=== PATIENT | male | born 1955 | race Caucasian/White ===

== ENCOUNTER 2017-11-05 19:19 | Inpatient (IN) | payer MEDICARE, OTHER ==
[~2017-11-05] VITALS: Ht 172.7 cm; Wt 113.4 kg
[2017-11-05 19:22] VITALS: BP 200/99
[2017-11-05 19:40] LABS: ABSOLUTE BASOPHILS 0.1 thou/uL (0.0-0.2); ABSOLUTE EOSINOPHILS 0.4 thou/uL (0.0-0.7); ABSOLUTE LYMPHOCYTES 2.4 thou/uL (0.8-5.3); ABSOLUTE MONOCYTES 0.6 thou/uL (0.0-1.2); ABSOLUTE NEUTROPHILS 5.5 thou/uL (1.6-8.1); BASOPHILS 1.2 %; EOSINOPHILS 4.9 %; HEMATOCRIT 40.7 % (42.0-52.0); HEMOGLOBIN 13.6 gm/dL (14.0-18.0); LYMPHOCYTES 26.7 %; MCH 27.6 pg (26.0-34.0); MCHC 33.4 g/dL (28.0-37.0); MCV 82.4 fL (80.0-100.0); MONOCYTES 7.1 %; MPV 8.3 fl. (7.2-11.1); NUCLEATED RBCS 0 /100WBC; PLATELET COUNT* 260 thou/uL (150-400); POLYS 60.1 %; RBC 4.94 mil/uL (4.50-6.00); RDW-CV 14.3 % (10.5-14.5); WBC 9.1 thou/uL (4.0-11.0)
[2017-11-05 19:48] LABS: ANION GAP 5 mmol/L (7-16); BUN 19 mg/dL (7-18); CALCIUM 8.6 mg/dL (8.5-10.1); CHLORIDE 102 mmol/L (98-107); CO2 31 mmol/L (21-32); CREATININE 1.6 mg/dL (0.6-1.3); GLUCOSE 218 mg/dL (70-99); POTASSIUM 4.6 mmol/L (3.5-5.1); SODIUM 138 mmol/L (136-145)
[2017-11-05 19:59] LABS: ALBUMIN 3.7 g/dL (3.4-5.0); ALKALINE PHOSPHATASE 145 U/L (46-116); LIPASE 238 U/L (73-393); NT-PRO BRAIN NAT PEPTIDE 83 pg/mL (<300); SGOT 19 U/L (15-37); SGPT 31 U/L (30-65); TOTAL BILIRUBIN 0.3 mg/dL (<0.1-1.0); TOTAL PROTEIN 7.7 g/dL (6.4-8.2); TROPONIN-I LEVEL <0.06 ng/mL (<0.06)
[2017-11-05 20:20] LABS: APTT 27.7 Seconds (25.0-31.3); INR 1.1; PROTIME 10.4 Seconds (9.20-11.50)
[2017-11-05 22:50] VITALS: BP 154/77
[2017-11-05 23:17] VITALS: BP 164/87
[2017-11-06] MEDS ORDERED: COREG25 MG PO (00:19)
[2017-11-06] MEDS ORDERED: FLOMAX0.4 MG PO (00:19)
[2017-11-06] MEDS ORDERED: CYMBALTA30 MG PO (00:19)
[2017-11-06] MEDS ORDERED: OMEPRAZOLE 20 M20 M1 PO (00:20)
[2017-11-06] MEDS ORDERED: LIPITOR 20 MG T20 M1 PO (00:20)
[2017-11-06] MEDS ORDERED: ASPIRIN EC81 M1 PO (00:20)
[2017-11-06] MEDS ORDERED: PLAVIX 75 MG TA75 M1 PO (00:20)
[2017-11-06] MEDS ORDERED: ALDACTONE50 MG PO (00:57)
[2017-11-06] MEDS ORDERED: COZAAR 50 MG TA50 M2 PO (00:57)
[2017-11-06] MEDS ORDERED: LANTUS100 UNIT/M SUBQ (00:58)
[2017-11-06] MEDS ORDERED: METFORMIN HCL500 MG PO (00:58)
[2017-11-06] MEDS ORDERED: XALATAN2.5 ML OPHTHALMIC (00:59)
[2017-11-06] MEDS ORDERED: NOVOLOG100 UNIT/1 SUBQ (01:01)
[2017-11-06 04:00] VITALS: BP 112/41
--- NOTE | 2017-11-06 04:31 | NUR ---
ASSUMED CARE OF PT AT 2305. PT IS ALERT AND ORIENTED. VSS. PERRLA. PT REPORTS ONGOING CHEST PAIN, BUT DOESNT WANT TO TAKE ANYTHING FOR PAIN. PT IS IN SINUS RYTHM ON THE TELEMETRY. PT IS RESTING COMFORTABLY IN BED. RESPIRATIONS ARE EVEN AND NONLABORED. WILL CONTINUE TO MONITOR PT.
[2017-11-06 08:00] VITALS: BP 153/75
--- NOTE | 2017-11-06 11:00 | EKG ---
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
--- NOTE | 2017-11-06 11:08 | EKG ---
[place] [address] ELECTROCARDIOGRAM REPORT Name: GRECIA MANZANO JR Room: [address] ADM IN M.R.#: [id number] Admission: 11/05/17 Attend Phys: Elijah Pedroza MD Discharge: Date of : 55 Report #: [id number] THIS REPORT FOR: //name// 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
[2017-11-06 12:00] VITALS: BP 115/90
--- NOTE | 2017-11-06 13:55 | NUR ---
CM ASSESSMENT: Pt is A&O. Resides at home with his , at bedside. Independent with ADLs, continues to assist around the house and drive. Pt wears a cpap at night, no other DME. No hx of HH. Hx of skilled in [place] after his stroke. Goal is to return home once medically stable for dc. No needs anticipated. Following.
[2017-11-06 15:00] VITALS: BP 115/90
--- NOTE | 2017-11-06 16:05 | EXE ---
[place] [address] STRESS ECHOCARDIOGRAM Name: GRECIA MANZANO JR Room: [address] IN [facility]#: [id number] Admission: 11/05/17 Attend Phys: Elijah Pedroza, Discharge: Date of : 55 Date of Service: 11/06/17 1604 Report #: [id number] THIS REPORT FOR: //name// APPROVED REPORT Exam: Dobutamine Stress Echo Indication: Chest pain Patient Location: In-Patient Stress Nurse: Lashae Perrin RN Room #: [facility] Supervising Physician: Dennis Fuentes MD Ht: 5 ft 8 in HR: 63 bpm BP: 156/88 mmHg Medical History Cardiac Risk Factors: HTN, Diabetes , Tobacco History (Former), FHX of CAD Procedure The patient underwent a Pharmacological Stress Test using Dobutamine. Blood pressure, heart rate, and EKG were monitored. An Echocardiogram was performed by seed technician in four stages in quad fashion. At peak stress, four selected images were obtained and placed side by side with resting images for comparison. Echo Enhancing Agent Indication: Endocardial border delineation Agent(s) / Amount(s) Used: Optison 6 cc Stress Test Details Stress Test: Pharmacological stress test performed using dobutamine initiated at 5 mcg/kg/min titrated sequentially 10, 20, 30 and 40 mcg/kg/min to target heart rate. HR Resting HR: 63 bpm Max Heart Rate (APMHR): 158 bpm Max HR Achieved: 158 bpm Target HR (85% APMHR): 134 bpm % of APMHR: 100 Recovery HR: 102 bpm HR response to stress: Normal HR response to stress BP Resting BP: 156/88 mmHg Max BP: 264/94 [place] [address] STRESS ECHOCARDIOGRAM Name: GRECIA MANZANO JR Room: [address]#: [id number] Admission: 11/05/17 Attend Phys: Elijah Pedroza, Discharge: Date of : 55 Date of Service: 11/06/17 1604 Report #: [id number] Recovery BP: 130/83 mmHg ECG Resting ECG: Sinus Rhythm Stress ECG: Sinus Rhythm, NSSTT changes ST Change: Upsloping ST depression Maximum ST Deviation: 0.5 mm Recovery ECG: Sinus Rhythm, nonspecific ST-T abnormalities Recovery ST Change: Upsloping ST depression Recovery ST Deviation: 0.5 mm Clinical Reason for Termination: Completed protocol Pre-Stress Echo The resting Echocardiogram showed normal left ventricular contractility with an estimated Ejection Fraction of about 55-60%. Post-Stress Echo The stress Echocardiogram showed normal left ventricular contractility with an estimated Ejection Fraction of about 65-70%. Conclusion Clinical Response: Non-ischemic Stress ECG Response: Equivocal Stress Echo Images: Non-ischemic images were suboptimal. consider nuclear imaging in the future Other Information Study Quality: Technically Difficult <Conclusion> images were suboptimal. consider nuclear imaging in the future <ELECTRONICALLY SIGNED> By: Dennis Fuentes MD, FACC 11/06/17 1604 1604 1604 Dennis Fuentes MD, FACC /INF
--- NOTE | 2017-11-06 16:45 | EKG ---
[place] [address] ELECTROCARDIOGRAM REPORT Name: GRECIA MANZANO JR Room: [address] IN 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: 27 : 1955 Requested By: Neva Pollard Order Number: [id number] Malina MD: Dennis Fuentes Measurements Intervals [place] Rate: 89 P: 54 [place]: 124 QRS: -21 QRSD: 101 T: 32 QT: 380 QTc: 463 Interpretive Statements Sinus rhythm Left ventricular hypertrophy Inferior infarct, old Compared to ECG 11/06/2017 09:04:58 No significant changes Electronically Signed On 11-06-2017 16:45:39 COMMERCIAL FINANCE MANAGER by Dennis Fuentes [email or web address] <ELECTRONICALLY SIGNED> By: Dennis Fuentes MD, [facility] 11/06/17 1645 1246 1246 Dennis Fuentes MD, [facility] /EPI
--- NOTE | 2017-11-06 18:51 | NUR ---
ORDER RECEIVED TO DISCHARGE [facility] TO SELF CARE. MED REC, MEDCIATION EDUCATION, STROKE EDUCATION, ADN NEED FOR FOLLOW UP [facility] AND STATED UNDEDRSTOOD BY [facility]. VITAL SIGNS STABLE AND PATIENT IN NO APPARENT DISTRESS AT THIS TIME. HOULRY ROUNDING COMPLETD FOR PATIENT SAFETY.
--- NOTE | 2017-11-07 17:17 | CON ---
[address] [address] CONSULTATION Name: GRECIA MANZANO JR Room: [address] IN .R.#: [id number] Admission: 11/05/17 Attend Phys: Elijah Pedroza MD Discharge: 11/06/17 Date of : 55 Report #: [id number] THIS REPORT FOR: //name// CC: [facility] physician/PCP Elijah Pedroza DATE OF SERVICE: 11/06/2017 HISTORY OF PRESENT ILLNESS: The patient is a 62-year-old white male who I was asked to see in hospital today after he complained of chest pain. The history is obtained from the patient. There are no old records here at [facility]. He has a long history of diabetes, hypertension, and hyperlipidemia. He presented in last fall with chest pain. He apparently had a pharmacologic stress test at the [facility]. He was found to have coronary artery disease. He apparently had a single coronary artery stent placed at the [place]. He has been on Plavix since that time. The patient apparently does go to cardiac rehab here at [facility]. Recently, he complains of intermittent chest pain. He describes sharp pain in his epigastric area. It feels like a focal area of pressure. It is not related to activity or meals. He has had no fever, cough, or blood in the stool. Denied any associated shortness of breath, diaphoresis, or nausea. It lasts about a minute and then resolves. After an episode yesterday, he came to the emergency room here at [facility]. He was admitted for further evaluation and treatment. He does note exertional dyspnea, but no palpitations or syncope. He has had no fever, cough, or blood in the stool. The pain was not related to food. It is not related to bending over. He has had no trauma to his chest or rash. PAST MEDICAL HISTORY: Otherwise significant for tonsillectomy and vasectomy. MEDICATIONS: Include aspirin, Lipitor, carvedilol, Plavix, insulin, losartan, metformin, omeprazole, spironolactone, and Flomax. ALLERGIES: He has intolerance to . FAMILY HISTORY: Positive for heart disease. SOCIAL HISTORY: He is . He and his live in [place]. 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 Quit smoking years ago. No alcohol abuse. Denies illicit drug use. REVIEW OF SYSTEMS: He does have sleep apnea. Apparently years ago, he was found to have a brain aneurysm, had a coil placed in his brain after he had some blurred vision. This was done in [place], [place]. He has no history of asthma, peptic ulcer disease, liver disease, kidney disease, or cancer. He does have a history of depression, saw a psychiatrist in the past. No chronic skin condition. [place] [address] CONSULTATION Name: GRECIA MANZANO JR Room: [address] IN [facility]#: [id number] Admission: 11/05/17 Attend Phys: Elijah Pedroza MD Discharge: 11/06/17 Date of : 55 Report #: [id number] PHYSICAL EXAMINATION: GENERAL: Revealed a middle-aged male, lying in bed, he appeared in no distress. VITAL SIGNS: He has a blood pressure of 160/80, pulse 70, he is afebrile. HEENT: He is anicteric. Conjunctivae are pink. Mucous members are moist. NECK: Veins nondistended. No carotid bruits. Neck supple. CHEST: Clear to auscultation. HEART: Regular rate and rhythm. No rub or murmur. ABDOMEN: Obese, soft, nontender. EXTREMITIES: Had no edema. Dorsalis pedis pulse 2+ bilaterally. SKIN: Warm and dry. NEUROLOGIC: Nonfocal. LYMPH: No adenopathy. MUSCULOSKELETAL: No joint effusions. PSYCHIATRIC: Mood appeared somewhat depressed. ECG last night showed a sinus rhythm. There was no ST or T-wave change noted. Workup in the emergency room last night, he had a portable chest x-ray that showed calcified aortic arch, otherwise unremarkable. Lab work, sodium 138, BUN 19, creatinine 1.6, glucose 218. Troponins all 0.06. White blood cell count 9.1, hemoglobin 13.6. IMPRESSION AND RECOMMENDATIONS: 1. Chest pain. Atypical for angina. Suspect noncardiac. Since the patient has a hard time walking on treadmill, I did recommend a dobutamine stress echo to look for ischemia. 2. Coronary artery disease. Previous stent. Currently on aspirin and Plavix. 3. Hyperlipidemia. The patient is on a statin drug. 4. Hypertension. The patient is on a beta cindi and ARB. 5. Diabetes. 6. Sleep apnea. 7. History of brain aneurysm, previous coiling. <ELECTRONICALLY SIGNED> By: Dennis Fuentes MD, FACC 11/07/17 1717 0842 1008Damitch Fuentes MD, FACC /nt
== END 2017-11-06 16:35 | disposition home or self-care (01) | DRG 303 ==
LOC: M.ERS 19:19 → M.2W 22:09 → M.TBA-ER 22:09 → M.2W 22:26
PROVIDERS: Personal Emergency Response Attendant; ADMIT Internal Medicine
DX: I25.119 Atherosclerotic heart disease of native coronary artery with unspecified angina pectoris (principal); N17.9 Acute kidney failure, unspecified; I10 Essential (primary) hypertension; E11.9 Type 2 diabetes mellitus without complications; E78.5 Hyperlipidemia, unspecified; G47.30 Sleep apnea, unspecified; D64.9 Anemia, unspecified; Z88.8 Allergy status to other drugs, medicaments and biological substances; Z91.013 Allergy to seafood; Z87.891 Personal history of nicotine dependence; Z90.49 Acquired absence of other specified parts of digestive tract; Z98.52 Vasectomy status; Z95.5 Presence of coronary angioplasty implant and graft; Z82.49 Family history of ischemic heart disease and other diseases of the circulatory system

== ENCOUNTER 2018-07-10 20:49 | Inpatient (IN) | payer MEDICARE, OTHER ==
[~2018-07-10] VITALS: Ht 172.7 cm; Wt 106.6 kg
--- NOTE | ~2018-07-10 | PROC ---
[facility] [address] [place] [address] PROCEDURE REPORT Name: GRECIA MANZANO JR Room: [address] IN .R.#: [id number] Admission: 07/10/18 Attend Phys: Elijah Pedroza MD Discharge: 07/14/18 Date of : 55 Report #: [id number] THIS REPORT FOR: //name// For GI report, please see the provation report in Perceptive 7 content. By: 0649Medical Records Staff ALLI /CECILIO
[~2018-07-10 20:49] MED LIST: ALDACTONE50 MG PO; ASPIRIN EC81 M1 PO; COREG25 MG PO; COZAAR 50 MG TA50 M2 PO; CYMBALTA30 MG PO; FLOMAX0.4 MG PO; LANTUS100 UNIT/M SUBQ; LIPITOR 20 MG T20 M1 PO; METFORMIN HCL500 MG PO; NOVOLOG100 UNIT/1 SUBQ; OMEPRAZOLE 20 M20 M1 PO; PLAVIX 75 MG TA75 M1 PO; XALATAN2.5 ML OPHTHALMIC
[2018-07-10] MEDS ORDERED: CYMBALTA60 MG PO (21:09)
[2018-07-10 21:10] VITALS: BP 151/73
[2018-07-10 21:46] LABS: URINE BILIRUBIN NEGATIVE (Negative); URINE BLOOD TRACE (Negative); URINE CLARITY CLEAR; URINE COLOR YELLOW; URINE GLUCOSE-RANDOM 2+ (Negative); URINE KETONES NEGATIVE (Negative); URINE LEUKOCYTES-REFLEX NEGATIVE (Negative); URINE NITRITE-REFLEX NEGATIVE (Negative); URINE PROTEIN TRACE (Negative); URINE SPECIFIC GRAVITY >= 1.030 (1.005-1.030); URINE UROBILINOGEN 0.2 E.U./dl (0.2-1.0)
[2018-07-10 21:53] LABS: BACTERIA-REFLEX None Seen /HPF (None Seen); CASTS None Seen /LPF (None Seen); CRYSTALS None Seen /LPF (None Seen); SQUAMOUS NONE SEEN /LPF (0-3); URINE RBC 0-2 Rare /HPF (0-2); URINE WBC-REFLEX None Seen /HPF (0-5)
[2018-07-10 22:01] LABS: ABSOLUTE BASOPHILS 0.1 thou/uL (0.0-0.2); ABSOLUTE EOSINOPHILS 0.3 thou/uL (0.0-0.7); ABSOLUTE LYMPHOCYTES 3.1 thou/uL (0.8-5.3); ABSOLUTE MONOCYTES 0.6 thou/uL (0.0-1.2); ABSOLUTE NEUTROPHILS 4.7 thou/uL (1.6-8.1); BASOPHILS 0.8 %; EOSINOPHILS 3.7 %; HEMATOCRIT 42.5 % (42.0-52.0); MCH 27.8 pg (26.0-34.0); MCV 84.3 fL (80.0-100.0); MPV 8.1 fl. (7.2-11.1); NUCLEATED RBCS 0 /100WBC; PLATELET COUNT* 233 thou/uL (150-400); POLYS 53.5 %; RBC 5.04 mil/uL (4.50-6.00); RDW-CV 13.6 % (10.5-14.5); WBC 8.8 thou/uL (4.0-11.0)
[2018-07-10 22:10] LABS: CALCIUM 9.4 mg/dL (8.5-10.1); POTASSIUM 4.8 mmol/L (3.5-5.1)
[2018-07-10 22:20] LABS: ALBUMIN 3.7 g/dL (3.4-5.0); TOTAL BILIRUBIN 0.4 mg/dL (<0.1-1.0); TOTAL PROTEIN 7.7 g/dL (6.4-8.2)
[2018-07-11 00:25] VITALS: BP 157/70
[2018-07-11 00:45] VITALS: BP 168/72
--- NOTE | 2018-07-11 06:27 | NUR ---
PATIENT ARRIVED ON FLOOR FROM ER ABOUT 0045. PATIENT ADMISSION HISTORY AND ASSESSMENT WAS COMPLETED CHARTED. PATIENT HAS HAD NO COMPLAINTS OF PAIN OR NAUSEA SINCE ARRIVAL UP HERE. WILL CONTINUE TO MONITOR.
--- NOTE | 2018-07-11 10:08 | NUR ---
SW met with pt to complete initial assessment, introduce self, and SW role. Pt resting but alert and oriented during conversation. Pt lives at home with his . Pt has CPAP at home but says that he coughs everytime he attempts to wear it. Pt did not express any dc needs at this time. SW to continue to follow.
[2018-07-11] MEDS ORDERED: THERA TEARS1 EAC1 OPHTHALMIC (12:35)
[2018-07-11] MEDS ORDERED: SINGULAIR 10 MG10 MG PO (12:36)
[2018-07-11 12:46] LABS: ABSOLUTE BASOPHILS 0.1 thou/uL (0.0-0.2); ABSOLUTE EOSINOPHILS 0.2 thou/uL (0.0-0.7); ABSOLUTE LYMPHOCYTES 2.3 thou/uL (0.8-5.3); ABSOLUTE MONOCYTES 0.4 thou/uL (0.0-1.2); BASOPHILS 0.9 %; EOSINOPHILS 4.2 %; HEMATOCRIT 41.3 % (42.0-52.0); HEMOGLOBIN 13.7 gm/dL (14.0-18.0); LYMPHOCYTES 38.5 %; MCH 27.6 pg (26.0-34.0); MCHC 33.1 g/dL (28.0-37.0); MCV 83.3 fL (80.0-100.0); MONOCYTES 6.7 %; MPV 7.9 fl. (7.2-11.1); NUCLEATED RBCS 0 /100WBC; PLATELET COUNT* 204 thou/uL (150-400); POLYS 49.7 %; RBC 4.95 mil/uL (4.50-6.00); RDW-CV 13.5 % (10.5-14.5); WBC 5.9 thou/uL (4.0-11.0)
[2018-07-11 12:52] LABS: POTASSIUM 4.9 mmol/L (3.5-5.1)
[2018-07-11 14:15] VITALS: BP 138/72
[2018-07-11 16:00] VITALS: BP 126/73
--- NOTE | 2018-07-11 17:25 | EKG ---
[place] [address] ELECTROCARDIOGRAM REPORT Name: GRECIA MANZANO JR Room: [address] ADM IN M.R.#: [id number] Admission: 07/10/18 Attend Phys: Elijah Pedroza MD Discharge: Date of : 55 Report #: [id number] THIS REPORT FOR: //name// [facility] ED Test Date: 2018-07-10 Test Time: 22:58:05 Pat Name: GRECIA MANZAON Department: Room: [facility] Gender: M Bank Appraiser: : 1955 Requested By: Arnel Diaz Order Number: [id number] MD: Arnel Beltran Measurements Intervals [place] Rate: 75 P: 51 [place]: 150 QRS: -18 QRSD: 102 T: 21 QT: 380 QTc: 425 Interpretive Statements Sinus rhythm Probable left ventricular hypertrophy Inferior infarct, old Compared to ECG 11/06/2017 12:46:29 No significant changes Electronically Signed On 07-11-2018 17:25:11 CDT by Arnel Beltran [email or web address] <ELECTRONICALLY SIGNED> By: Arnel Beltran MD, [facility] 07/11/18 4637 2258 2258 Arnel Beltran MD, [facility] /EPI
--- NOTE | 2018-07-11 19:39 | NUR ---
PATIENT A&OX4, ROOM AIR, IV RIGHT WRIST. NEW IV FLUIDS STARTED ALONG WITH IV ABX. UP INDEPENDENTLY, STEADY GAIT. C/O ABD PAIN, RELIEF WITH MEDICATION. NO OTHER CONCERNS AT THIS TIME. APPROPRAITE AND COOPORATIVE WITH CARE.
[2018-07-11 20:30] VITALS: BP 134/69
[2018-07-12 05:00] LABS: ABSOLUTE EOSINOPHILS 0.4 thou/uL (0.0-0.7); ABSOLUTE LYMPHOCYTES 2.6 thou/uL (0.8-5.3); ABSOLUTE MONOCYTES 0.5 thou/uL (0.0-1.2); ABSOLUTE NEUTROPHILS 3.4 thou/uL (1.6-8.1); BASOPHILS 0.6 %; EOSINOPHILS 5.1 %; HEMATOCRIT 37.3 % (42.0-52.0); HEMOGLOBIN 12.6 gm/dL (14.0-18.0); LYMPHOCYTES 37.7 %; MCH 28.1 pg (26.0-34.0); MCHC 33.7 g/dL (28.0-37.0); MCV 83.3 fL (80.0-100.0); MONOCYTES 7.1 %; MPV 8.3 fl. (7.2-11.1); NUCLEATED RBCS 0 /100WBC; PLATELET COUNT* 191 thou/uL (150-400); POLYS 49.5 %; RBC 4.48 mil/uL (4.50-6.00); RDW-CV 13.6 % (10.5-14.5); WBC 6.9 thou/uL (4.0-11.0)
[2018-07-12 05:01] LABS: CALCIUM 8.9 mg/dL (8.5-10.1); CREATININE 1.9 mg/dL (0.6-1.3); POTASSIUM 4.8 mmol/L (3.5-5.1)
[2018-07-12 08:30] VITALS: BP 155/69
[2018-07-12 16:59] VITALS: BP 162/64
--- NOTE | 2018-07-12 18:47 | NUR ---
PATIENT HAS BEEN A/O X 4 THIS SHIFT. MEDICATED FOR ABDOMINAL PAIN X 2 TODAY WITH PARTIAL RELIEF. PATIENT GIVEN ZOFRAN X 1 THIS AM. PATIENT CONTINUES ON IV FLUIDS. PATIENT'S BLOOD SUGARS MONITORED. PATIENT UP AD LUIS E IN ROOM, AMBULATING TO BATHROOM. UP IN CHAIR THIS SHIFT. PATIENT STARTED ON BOWEL PREP THIS AFTERNOON FOR COLONOSCOPY ON MONDAY, STOOLS BECOMING LIQUID WITH SANDLIKE CONSISTENCY. PATIENT'S FAMILY AT BEDSIDE INTERMITTENTLY THIS SHIFT. HOURLY ROUNDING COMPLETED. CALL LIGHT WITHIN REACH. WILL CONTINUE WITH PLAN OF CARE.
[2018-07-12 20:10] VITALS: BP 138/63
--- NOTE | 2018-07-13 06:07 | NUR ---
PT SLEPT ON AND OFF THIS SHIFT. ASSESSMENT DOCUMENTED. MEDS GIVEN PER E-DEC. PAIN MEDS GIVEN FOR ABDOMINAL PAIN PER E-DEC. PT REMAINED NPO AFTER MIDNIGHT. STOOLS CLEAR THIS SHIFT FROM BOWEL PREP. IV PATENT, FLUIDS INFUSING. CONSENTS FOR COLONOSCOPY SIGNED AND ON CHART. WILL CONTINUE WITH PLAN OF CARE.
[2018-07-13 08:30] VITALS: BP 137/69
[2018-07-13 09:36] VITALS: BP 137/69
[2018-07-13 14:35] VITALS: BP 159/75
--- NOTE | 2018-07-13 14:35 | NUR ---
PATIENT RETURNED FROM PACU S/P UNSUCCESSFUL COLONOSCOPY. PATIENT'S VITALS STABLE. TO REPEAT COLONOSCOPY ON MONDAY. PATIENT AWARE. WILL BEGIN BOWEL PREP WHEN AVAILABLE. CALL LIGHT WITHIN REACH. WILL CONTINUE WITH PLAN OF CARE.
[2018-07-13 15:50] VITALS: BP 143/64
--- NOTE | 2018-07-13 16:23 | NUR ---
SPOKE TO THE PATIENT TO DISCUSS DISCHARGE PLANNING NEEDS. PATIENT INFORMS THAT HE DOES NOT ANTICIPATE ANY DISCHARGE PLANNING NEEDS. CM WILL REMAIN AVIALABLE TO ASSIST AND FOLLOW NEEDED.
--- NOTE | 2018-07-13 19:20 | NUR ---
PATIENT HAS BEEN A/O X 4 THIS SHIFT. PATIENT TAKEN FOR COLONOSCOPY THIS SHIFT, DUE TO POOR BOWEL PREP, PATIENT WILL HAVE REPEAT COLONOSCOPY IN AM. PATIENT TAKING BOWEL PREP AT THIS TIME. UP AD LUIS E IN ROOM. PATIENT TAKING CLEAR LIQUIDS. PATIENT'S BLOOD SUGAR MONITORED. PATIENT MEDICATED FOR PAIN PRIOR TO COLONOSCOPY. PATIENT'S AT BEDSIDE THIS AM. HOURLY ROUNDING COMPLETED. CALL LIGHT WITHIN REACH. WILL CONTINUE WITH PLAN OF CARE.
[2018-07-13 23:10] VITALS: BP 160/70
[2018-07-14 04:35] LABS: HEMATOCRIT 40.9 % (42.0-52.0); HEMOGLOBIN 13.6 gm/dL (14.0-18.0); MCHC 33.2 g/dL (28.0-37.0); MCV 84.4 fL (80.0-100.0); MPV 8.3 fl. (7.2-11.1); RBC 4.85 mil/uL (4.50-6.00); RDW-CV 13.5 % (10.5-14.5); WBC 6.9 thou/uL (4.0-11.0)
[2018-07-14 04:43] LABS: CALCIUM 9.3 mg/dL (8.5-10.1); CREATININE 1.5 mg/dL (0.6-1.3); POTASSIUM 4.4 mmol/L (3.5-5.1)
--- NOTE | 2018-07-14 05:29 | NUR ---
ASSESSMENT COMPLETE. BOWEL PREP COMPLETED FOR COLONOSCOPY SCHEDULED TODAY. CONSENT SIGNED AND IN CHART. PT GIVEN PAIN MEDICATION ONCE DURING THE NIGHT. IV FLUIDS INFUSING. PT IS ON ROOM AIR WITH [place] SATS. UP AD LUIS E WITH STEADY GAIT. PT TURNS SELF IN BED. SEE ASSESSMENT AND VITALS FOR OTHER DETAILS. CALL LIGHT WITHIN REACH, WILL CONTINUE PLAN OF CARE
[2018-07-14 07:45] VITALS: BP 182/72
[2018-07-14 09:50] VITALS: BP 146/68
[2018-07-14 14:30] VITALS: BP 140/66
[2018-07-14 14:36] VITALS: BP 182/72
--- NOTE | 2018-07-14 15:07 | NUR ---
PATIENT A&OX4, ROOM AIR, IV LEFT FOREARM FLUIDS INFUSSING. UP AD LUIS E STEADY GIAT. BMX4, BOWEL PREP THROUGH NIGHT. COLONOSCOPY TODAY, POLUP REMOVED. TOLERATING HEART HEALTHY DIET. NO C/O PIAN/N/V. NO OTHER CONCERNS AT THIS TIME. PATIENT LEFT UNIT WITH ALL BELONGINGS AT 1505 WITH ALL BELONGINGS, NOTHING LEFT BEHIND. LEFT UNIT VIA W/C WITH SPOUCE. APPROPRAITE AND COOPORATIVE WITH CARE.
--- NOTE | 2018-07-19 16:08 | PATH ---
[facility] [address] [place] [address] PATHOLOGY RPT PROCEDURE Name: DANIEL MANZANO JR Room: [address] IN ..#: [id number] Admission: 07/10/18 Date of : 55 Discharge: 07/14/18 Report #: [id number] Path Case #: [id number] [facility] Accession Number: [id number] . 01 Material submitted: . ASCENDING COLON POLYP . 01 Clinical history: . Ascending colon polyp . 02 Diagnosis: Ascending colon polyp: - Serrated adenoma, negative for high grade dysplasia. . (EULA:at;07/17/2018) QTA/07/17/2018 . 02 Electronically signed: . Chaz Rider MD, Pathologist NPI- [id number] . 01 Gross description: . Received in formalin labeled "Daniel Manzano Jr, ascending colon polyp," is a polypoid segment of mcclain-brown soft tissue measuring 0.8 x 0.5 x 0.4 cm in greatest dimensions. The surgical margin is inked, and the specimen is bisected and submitted entirely in cassette A1. . Also received within the specimen container are two fragments of mcclain soft tissue measuring 0.4 x 0.3 x 0.1 cm and 0.8 x 0.4 x 0.3 cm in greatest dimensions. This tissue is also submitted entirely in cassette A1. ([facility]; 07/16/2018) XDC/XDC . 02 Pathologist provided ICD-10: D12.2 . 02 CPT . 202866 Specimen Comment: A courtesy copy of this report has been sent to Specimen Comment: [phone], . Specimen Comment: Report sent to / DR CHUNG Specimen Comment: A duplicate report has been generated due to demographic updates. Performed at: [address] [id number] MD Juan Henry MD Phone: [phone] Performed at: [address] [place] [address] PATHOLOGY RPT PROCEDURE Name: DANIEL MANZANO JR Room: [address] IN .R.#: [id number] Admission: 07/10/18 Date of : 55 Discharge: 07/14/18 Report #: [id number] Path Case #: [id number] [facility] [address] ALFREDO Kay [id number] MD Chaz Rider MD Phone: [phone]
--- NOTE | 2018-07-23 11:22 | CON ---
[address] [address] CONSULTATION Name: GRECIA MANZANO JR Room: [address]R.#: [id number] Admission: 07/10/18 Attend Phys: Elijah Pedroza MD Discharge: 07/14/18 Date of : 55 Report #: [id number] THIS REPORT FOR: //name// CC: [facility] physician/PCP Elijah Pedroza HISTORY OF PRESENT ILLNESS: This is a very pleasant 63-year-old male who was present for evaluation of abdominal pain. The patient reports that his pain is located in the right lower quadrant and has been present for about a week. He reports the pain is sharp and episodic and has no particular aggravating or alleviating factors. The patient does report that occasionally, the pain can get better with food. He denies any diarrhea, fevers, chills, hematochezia, hematemesis, nausea or vomiting. The pain does not appear to have any particular relation to position or movement either. PAST MEDICAL HISTORY: The patient has abdominal aortic aneurysm, hypertension, diabetes and coronary artery disease. PAST SURGICAL HISTORY: The patient had a colonoscopy performed 2 years ago, which was apparently normal. SOCIAL HISTORY: The patient quit smoking, but prior to this, he has 30-40-pack year smoking history. He denies alcohol or recreational drug use. 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 FAMILY HISTORY: Negative for colon cancer. REVIEW OF SYSTEMS: A comprehensive 10-point review of systems is negative except for what is mentioned above. PHYSICAL EXAMINATION: VITAL SIGNS: Temperature 36.4, pulse rate 68, respirations 16, blood pressure 155/69. GENERAL: The patient is alert, awake, oriented x 3. HEENT: Pupils are equal, round, reactive to light and accommodation. Mucous membranes are moist. NECK: Supple. There is no congestion. CARDIOVASCULAR: Rate and rhythm regular. S1, S2 present. ABDOMEN: Soft. There is no distention. Mild tenderness to deep palpation in the right lower quadrant, otherwise no significant tenderness. EXTREMITIES: Warm, well perfused. There is no focal neurological deficit. SKIN: Warm and dry. LABORATORY DATA: Hemoglobin 12.6, hematocrit 37.3, platelet count 191, WBC count 6.9. Sodium 135, potassium 4.8, chloride 102, bicarbonate 27, BUN 32, creatinine 1.9, glucose 215. CT abdomen and [place] [address] CONSULTATION Name: GRECIA MANZANO JR Room: [address]#: [id number] Admission: 07/10/18 Attend Phys: Elijah Pedroza MD Discharge: 07/14/18 Date of : 55 Report #: [id number] most of the lower aorta measuring 3.5 cm in AP and transverse extending into the left common iliac artery measures up to 3 cm in size. Clinical correlation is recommended. No obstruction or renal stones seen within the kidneys. No other abnormalities to account for the patient's abdominal pain and nausea. ASSESSMENT AND PLAN: This is a pleasant 63-year-old male with past medical history significant for hypertension, coronary artery disease, diabetes, abdominal aortic aneurysm, presenting with worsening episodic right lower quadrant pain. CT abdomen was unremarkable. We will proceed with the colonoscopy tomorrow for evaluation of his right lower quadrant abdominal pain. Further recommendations will be based on results of above. <ELECTRONICALLY SIGNED> By: Ramesh Akins MD 07/23/18 1122 1343 [id number] Akins MD /nt
== END 2018-07-14 15:05 | disposition home or self-care (01) | DRG 371 ==
LOC: M.ERS 20:49 → M.TBA-ER 23:30 → M.3W 23:30
PROVIDERS: Internal Medicine; Physician Assistant; ADMIT Internal Medicine
PROC: 0DBK8ZZ Excision of Ascending Colon, Via Natural or Artificial Opening Endoscopic (ICD-10-PCS; principal; 2018-07-14)
DX: A04.9 Bacterial intestinal infection, unspecified (principal); N17.0 Acute kidney failure with tubular necrosis; I72.3 Aneurysm of iliac artery; E11.65 Type 2 diabetes mellitus with hyperglycemia; I10 Essential (primary) hypertension; N28.1 Cyst of kidney, acquired; I25.10 Atherosclerotic heart disease of native coronary artery without angina pectoris; K63.5 Polyp of colon; Z79.82 Long term (current) use of aspirin; Z79.84 Long term (current) use of oral hypoglycemic drugs; Z79.4 Long term (current) use of insulin; Z79.899 Other long term (current) drug therapy; Z88.8 Allergy status to other drugs, medicaments and biological substances; Z91.013 Allergy to seafood; Z87.442 Personal history of urinary calculi; Z82.49 Family history of ischemic heart disease and other diseases of the circulatory system; Z87.891 Personal history of nicotine dependence; Z95.5 Presence of coronary angioplasty implant and graft

== ENCOUNTER 2019-01-04 08:40 | Emergency (ER) | payer MEDICARE, OTHER ==
[~2019-01-04] VITALS: Ht 172.7 cm; Wt 106.6 kg
[~2019-01-04 08:40] MED LIST changes: +CYMBALTA60 MG PO; +SINGULAIR 10 MG10 MG PO; +THERA TEARS1 EAC1 OPHTHALMIC
[2019-01-04] MEDS ORDERED: TRULICITY0.75 MG/0. SUBQ (08:53)
[2019-01-04] MEDS ORDERED: CYMBALTA60 MG PO (08:54)
[2019-01-04 09:41] VITALS: BP 196/87
== END 2019-01-04 09:42 | disposition home or self-care (01) ==
LOC: M.ERS 08:40
DX: S00.81XA Abrasion of other part of head, initial encounter (principal); I10 Essential (primary) hypertension; E11.9 Type 2 diabetes mellitus without complications; Z88.8 Allergy status to other drugs, medicaments and biological substances; Z91.013 Allergy to seafood; Z79.4 Long term (current) use of insulin; W01.0XXA Fall on same level from slipping, tripping and stumbling without subsequent striking against object, initial encounter; Y92.007 Garden or yard of unspecified non-institutional (private) residence as the place of occurrence of the external cause; Y93.89 Activity, other specified; Y99.8 Other external cause status